=== PATIENT | female | born 1990 | race Two or more races ===

== ENCOUNTER 2022-11-10 11:48 | Emergency (ER) | payer OTHER ==
[~2022-11-10] VITALS: Ht 160 cm; Wt 52.2 kg
[2022-11-10 12:35] VITALS: BP 113/66
[2022-11-10 12:56] LABS: Albumin 3.3 g/dL (3.4-5.0); BUN/Creatinine Ratio 10.2; Calcium 8.2 mg/dL (8.5-10.1); Potassium 3.1 mmol/L (3.5-5.1)
[2022-11-10 12:59] LABS: Bilirubin, Total 0.5 mg/dL (0.2-1.0); Total Protein 6.9 g/dL (6.4-8.2)
[2022-11-10] MEDS ORDERED: KETOROLAC TROMETH 30 MG/ML 1ML VIAL IV ONE (13:00)
[2022-11-10] MEDS ORDERED: DexAMETHasone SOD PHOS 10MG/1ML VIAL INJ IV ONE (13:00)
[2022-11-10 13:11] LABS: Basophils # (auto) 0 10 ^3/uL (0-0.2); Basophils % (auto) 0.2 % (0.0-2.0); Eosinophils # (auto) 0 10 ^3/uL (0-0.8); Hematocrit 37.5 % (36.0-46.0); Hemoglobin 12.7 g/dL (12.2-16.2); Lymphocytes % (auto) 8.8 % (10.0-50.0); Mean Corpuscular Hemoglobin 30.3 pg (28.0-32.0); Mean Corpuscular Volume 89.1 fL (80.0-100.0); Monocytes # (auto) 0.4 10 ^3/uL (0-1.3); Monocytes % (auto) 3.4 % (0.0-12.0); Neutrophils # (auto) 9.8 10 ^3/uL (1.6-8.6); Neutrophils % (auto) 87.6 % (37.0-80.0); Nucleated Red Blood Cells % 0.1 %; Red Blood Cells 4.21 10^6/uL (4.0-5.20); White Blood Cell 11.1 10^3/uL (4.4-10.8)
[2022-11-10] MEDS ORDERED: SODIUM CHLORIDE 0.9% 1,000 ML IV ONE (13:15)
== END 2022-11-10 14:34 | disposition home or self-care (01) ==
LOC: ER 11:48 → EDBD 11:48 → ER 14:34
DX: M54.59 Other low back pain (principal); T78.3XXA Angioneurotic edema, initial encounter; R10.2 Pelvic and perineal pain; F41.9 Anxiety disorder, unspecified
CPT/HCPCS: 36415; 72100; 80053; 84702; 85025; 96361; 96374; 96375; 99284; J1100; J1885; J7030